=== PATIENT | male | born 1965 | race Caucasian/White ===

== ENCOUNTER → 2021-05-07 | Outpatient (CLI) | payer BC ==
--- NOTE | 2021-05-07 13:09 | RAD ---
EXAM: Bilateral knees, 2 views. HISTORY: Pain. COMPARISON: None. FINDINGS: Left knee: There is moderate medial compartment joint space narrowing, subchondral sclerosis and spur ring. There is mild lateral and patellofemoral compartment spurring. There is a small joint effusion. There is bone demineralization. Right knee: There is moderate patellofemoral compartment joint space narrowing and subchondral sclero sis. There is mild medial and lateral compartment spurring. There is trace joint fluid. There is bone demineralization. IMPRESSION: 1. Moderate medial compartment predominant osteoarthritis of the left knee with small joint effusion. 2. Moderate patellofemoral compartment predominant osteoarthritis of the right knee. Electronically signed by: Christine Garcia MD (05/07/2021 1:07 PM) [id number]
== END ==
LOC: RAD 11:29
PROVIDERS: ATTEND Family Medicine
DX: M17.0 Bilateral primary osteoarthritis of knee (principal); M81.8 Other osteoporosis without current pathological fracture; M25.462 Effusion, left knee; M76.892 Other specified enthesopathies of left lower limb, excluding foot; M76.891 Other specified enthesopathies of right lower limb, excluding foot; M25.862 Other specified joint disorders, left knee; M25.861 Other specified joint disorders, right knee
CPT/HCPCS: 73562-50